=== PATIENT | female | born 1995 ===

== ENCOUNTER 2017-04-22 13:45 | Emergency (ER) | payer SELFPAY ==
--- NOTE | 2017-04-22 20:04 | Emergency Department Report ---
ED General Adult HPI - General Chief complaint: Skin Rash Stated complaint: RT BREAST IRRTATION X 1 MONTH Time Seen by Provider: 04/22/17 19:25 Source: patient Mode of arrival: Ambulatory Limitations: No Limitations - History of Present Illness Initial comments: pt is a 21 y/o aaf with nmh LMP 04/03/2017 who presents for nipple discharge and itching and erythema x 1 week pt denies breast mass no family hx of breast CA, pt denies fever or chills no n/v. Onset/Timin -: week(s) Location: chest (right breast cellulitis ) Radiation: back Severity scale (0 -10): 4 Quality: other (itching ) Consistency: constant Improves with: none Worsens with: none Associated Symptoms: denies: confusion, chest pain, cough, fever/chills, loss of appetite, malaise, nausea/vomiting, shortness of breath, syncope, weakness Treatments Prior to Arrival: none - Related Data Previous Rx's Medication Instructions Recorded Last Taken Type Clindamycin Phosphate [Cleocin T 60 ml TP Q12H #1 tube 12/16/15 Unknown Rx 1% TOPICAL LOTION] traMADol [Ultram 50 MG tab] 50 mg PO Q6HR PRN #20 tablet 12/16/15 Unknown Rx Clindamycin [Clindamycin CAP] 300 mg PO Q8H #30 cap 04/22/17 Unknown Rx Mupirocin [Bactroban 2% OINT] 1 applic TP BID #1 tube 04/22/17 Unknown Rx Allergies Allergy/AdvReac Type Severity Reaction Status Date / Time Penicillins Allergy Unknown Verified 04/22/17 14:29 ED Review of Systems ROS: Stated complaint: RT BREAST IRRTATION X 1 MONTH Other details as noted in HPI Constitutional: denies: chills, fever Eyes: denies: eye pain, eye discharge, vision change ENT: as per HPI Respiratory: denies: cough, shortness of breath, wheezing Cardiovascular: denies: chest pain, palpitations Endocrine: no symptoms reported Gastrointestinal: as per HPI Genitourinary: denies: urgency, dysuria, discharge Musculoskeletal: denies: back pain, joint swelling, arthralgia Skin: rash (right aveolar discharge yellow thick with erythema itching ). denies: lesions Neurological: denies: headache, weakness, paresthesias Psychiatric: denies: anxiety, depression Hematological/Lymphatic: denies: easy bleeding, easy bruising ED Past Medical Hx - Past Medical History Previous Medical History?: No - Surgical History Past Surgical History?: No - Social History Smoking Status: Current Every Day Smoker Substance Use Type: None - Medications Home Medications: Home Medications Medication Instructions Recorded Confirmed Last Taken Type Clindamycin Phosphate [Cleocin T 60 ml TP Q12H #1 tube 12/16/15 Unknown Rx 1% TOPICAL LOTION] traMADol [Ultram 50 MG tab] 50 mg PO Q6HR PRN #20 tablet 12/16/15 Unknown Rx Clindamycin [Clindamycin CAP] 300 mg PO Q8H #30 cap 04/22/17 Unknown Rx Mupirocin [Bactroban 2% OINT] 1 applic TP BID #1 tube 04/22/17 Unknown Rx ED Physical Exam - General Limitations: No Limitations General appearance: alert, in no apparent distress - Head Head exam: Present: atraumatic, normocephalic - Eye Eye exam: Present: normal appearance - ENT ENT exam: Present: mucous membranes moist - Neck Neck exam: Present: normal inspection - Respiratory Respiratory exam: Present: normal lung sounds bilaterally. Absent: respiratory distress - Cardiovascular Cardiovascular Exam: Present: regular rate, normal rhythm. Absent: systolic murmur, diastolic murmur, rubs, gallop - GI/Abdominal GI/Abdominal exam: Present: soft - Rectal Rectal exam: Present: deferred - Extremities Exam Extremities exam: Present: normal inspection, full ROM. Absent: tenderness - Back Exam Back exam: Present: normal inspection, full ROM. Absent: tenderness - Neurological Exam Neurological exam: Present: alert, oriented X3, normal gait, reflexes normal - Psychiatric Psychiatric exam: Present: normal affect, normal mood - Skin Skin exam: Present: warm, other (right aveolar erythema purulent drainage mild erythema no pain to touch no focal abscess ) ED Course Vital Signs 04/22/17 14:29 Temperature 98.3 F Pulse Rate 64 Respiratory 18 Rate Blood Pressure 104/40 O2 Sat by Pulse 100 Oximetry ED Medical Decision Making - Medical Decision Making pt is a 21 y/o aaf with nmh LMP 04/03/2017 , does not perform monthly breast exam : who presents for nipple discharge and itching and erythema x 1 week pt denies breast mass no family hx of breast CA, pt denies fever or chills no n/v. 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 My [employer] [phone] pt verbalized agreement and understanding of same. Critical care attestation.: If time is entered above; I have spent that time in minutes in the direct care of this critically ill patient, excluding procedure time. ED Disposition Clinical Impression: Cellulitis of right breast Disposition: - TO HOME OR SELFCARE Is pt being admited?: No Does the pt Need Aspirin: No Condition: Good Instructions: Cellulitis (ED) Prescriptions: Clindamycin [Clindamycin CAP] 300 mg PO Q8H #30 cap Mupirocin [Bactroban 2% OINT] 1 applic TP BID #1 tube Referrals: PRIMARY CAREMD [Primary Care Provider] - 3-5 Days SOBEIDA REYES MD [Staff Physician] - 3-5 Days Forms: Work/School Release Form(ED) Time of Disposition: 20:17
[2017-04-22 20:33] VITALS: BP 103/62
== END 2017-04-22 20:32 | disposition home or self-care (01) ==
LOC: ED 13:45
DX: N61.0 Mastitis without abscess (principal); F17.200 Nicotine dependence, unspecified, uncomplicated; Z88.0 Allergy status to penicillin
CPT/HCPCS: 99282